=== PATIENT | female | born 1995 | race Caucasian/White ===

== ENCOUNTER → 2017-08-04 16:06 | Outpatient (CLI) | payer MEDICAID, SELFPAY ==
[2017-08-04 19:24] LABS: Chlamydia Trachomatis by PCR Negative (Negative); Neisserai gonorrhoeae by PCR Negative (Negative); Probe Check PASS; Sample Adequacy Control PASS; Specimen Processing Control PASS
[2017-08-09 15:13] LABS: HPV Reflexed? NOT INDICATED
== END ==
PROVIDERS: Visit Provider Obstetrics & Gynecology
DX: Z12.4 Encounter for screening for malignant neoplasm of cervix (principal); Z12.72 Encounter for screening for malignant neoplasm of vagina
CPT/HCPCS: 87491; 87591; 88175; G0145

== ENCOUNTER 2017-11-25 08:17 | Outpatient (CLI) | payer MEDICAID, SELFPAY ==
[2017-11-25 08:18] VITALS: BP 109/74; PULSE 72; RESP 15; TEMP 36.7; O2SAT 100; BMI 26.2
[2017-11-25 08:25] VITALS: O2SAT 100
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
--- NOTE | 2017-11-25 08:56 | ED.RN ---
REPORT CALLED TO [facility] IN [facility], PT TRANSPORTED IN WHEELCHAIR
[2017-11-25 09:28] VITALS: BMI 24.7
[2017-11-25] MEDS: 0.9% Saline Lock 10 ML Syringe IV (09:45)
[2017-11-25 10:07] LABS: Hematocrit 34.4 % (37-47); Hemoglobin 11.4 g/dl (12.0-15.0); Mean Corp Hgb Conc 33.1 g/gl (32-36); Mean Corpuscular Hgb 31.1 pg (27.0-32.0); Mean Platelet Vol. 9.5 fl (6.2-12.0); Platelet Count 258 K/mm3 (150-450); RBC Distribution Width CV 13.2 % (11.6-14.6); RBC Distribution Width SD 45.1 fl (35.1-43.9); Red Blood Count 3.66 M/mm3 (4.2-5.4); White Blood Count 16.9 K/mm3 (4.4-11.0)
[2017-11-25 10:08] LABS: Scan Indicated on CBC? Y/N NO
[2017-11-25 10:56] LABS: Prothrombin Time (Protime)PT. 13.1 SECONDS (11.7-14.9)
[2017-11-25 10:57] LABS: Fibrinogen 306 mg/dl (203-444); Partial Thromboplast Time 26.9 Seconds (24.1-36.2)
[2017-11-25] MEDS: Lactated Ringers 500 ML IV (11:30)
[2017-11-25 12:34] LABS: ROM Internal Control Test YES-OK TO RESULT pt. (Internal QC); ROM Patient Test Negative (Negative)
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
== END 2017-11-25 13:35 | disposition home or self-care (01) ==
LOC: ED 08:49 → WPOUT 09:18 → WP 09:20
PROVIDERS: Emergency Provider Emergency Medicine; Visit Provider Obstetrics & Gynecology
DX: O9A.212 Injury, poisoning and certain other consequences of external causes complicating pregnancy, second trimester (principal); S30.1XXA Contusion of abdominal wall, initial encounter; S70.12XA Contusion of left thigh, initial encounter; Z3A.25 25 weeks gestation of pregnancy; V89.2XXA Person injured in unspecified motor-vehicle accident, traffic, initial encounter; Y93.9 Activity, unspecified; Y92.9 Unspecified place or not applicable; O76 Abnormality in fetal heart rate and rhythm complicating labor and delivery; R10.2 Pelvic and perineal pain
CPT/HCPCS: 96360; 36415; 59050; 84112; 85027; 85384; 85610; 85730; 86900; 99218; 99284; J7120; A4216; G0378

== ENCOUNTER 2018-03-03 16:50 | Inpatient (IN) | payer MEDICAID, SELFPAY ==
[2018-03-03 16:09] VITALS: BMI 30.3
[2018-03-03] MEDS: Lactated Ringers 1,000 ML 50 ML IV ×2 (17:00→18:23)
[2018-03-03 17:20] LABS: Hematocrit 39.9 % (37-47); Hemoglobin 13.1 g/dl (12.0-15.0); Mean Corp Hgb Conc 32.8 g/gl (32-36); Mean Corpuscular Hgb 30.5 pg (27.0-32.0); Mean Platelet Vol. 9.5 fl (6.2-12.0); Platelet Count 341 K/mm3 (150-450); RBC Distribution Width CV 14.1 % (11.6-14.6); Red Blood Count 4.29 M/mm3 (4.2-5.4); Scan Indicated on CBC? Y/N NO; White Blood Count 20.1 K/mm3 (4.4-11.0)
[2018-03-03 17:30] LABS: Group B Strep DNA By PCR Negative (Negative); Internal Control PASS; Probe Check PASS; Specimen Processing Control PASS
[2018-03-03] MEDS: fentaNYL-bupivacaine (epidural) 100 ML BAG EPIDURAL (17:52)
--- NOTE | 2018-03-03 17:59 | PCM.HP.OB ---
- Problem List (1) Active labor at term Status: Acute (2) SROM (spontaneous rupture of membranes) Status: Acute (3) Multiparous Status: Acute History Date of Admission: 03/03/18 Final GILDA: 03/04/18 Final GILDA Source: US <20 weeks Gestational age: 39 Weeks and 6 Days History of this : This is a 22 year-old, G [3], P [2], at 39 weeks gestational age. Presented to L&D with contractions every 2 minutes since around 3pm. Upon arrival SROM for clear fluid. Patient arrived as no doc patient. Currently patient seeing Dr. Connors with My QUANTITATIVE RESEARCH ANALYST, patient declined care at [facility] and that is why presented to [facility]. Records released signed and records received from [facility]. History of Vacuum delivery with first child. 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 Do not have official lab report. Allergies No Known Allergies Allergy (Verified 03/03/18 17:09) Home Medications: Home Medications Vits [Prenatabs FA] 1 tablet PO DAILY 11/25/17 Smoking Status: Current every day smoker Alcohol: None Number of Fetus(es): 1 Heart Tracin, moderate variability, accels, no decels, Category 1 TOCO Analysis: TOCO: Contractions every 2 minutes, moderate to palpation. History Past Pregnancies: Past Pregnancies Delivery Date Name GA/Weeks Outcome Route Weight Infant Gender Labor Length Anesthesia Delivery Location Provider FOB Labs: RPR Negative HIV Negative HBsAG Negative Rubella Immune GBS negative GC/CT negative O positive Anti E antibody. Expected Delivery Method: Spontaneous Vaginal Review of Systems Constitutional: Denies: Chills, Fever, Weight Change HEENT: Denies: Head Aches, Sinus Congestion, Sinus Drainage Cardiovascular: Denies: Chest Pain, Palpitations Respiratory: Denies: Cough, Shortness of breath at rest, Sputum production Gastrointestinal: Denies: Abdominal Pain, Nausea, Vomiting Genitourinary: Denies: Dysuria Neurological: Denies: Numbness, Tingling, Focal weakness Psychiatric: Denies: Anxiety, Depression, Homicidal Ideations, Suicidal Ideations Physical Exam General: Alert, Oriented x3, No apparent distress HEENT: Atraumatic, Normocephalic. Negative for: Thyromegaly, Lymphadenopathy Cardiovascular: Regular rate, Regular Rhythm, No murmurs Lungs: Clear to auscultation, No rhonchi, No wheeze Abdomen: Gravid Extremities:: No edema Neurological: Deep Tendon Reflexes 2+/4 and Symmetrical. Negative for: Clonus VIDEO GAMES MECHANIC: Normal external genitalia Estimated gestational size: Appropriate for gestational size Presentation: Cephalic Cervix Dilation (cm): 5 - Per nursing Assessment/Plan All Active Problems Active labor at term (Acute) SROM (spontaneous rupture of membranes) (Acute) Multiparous (Acute) This is a 22 year-old, G [3], P [2002], at 39 weeks 5 days EGA by end trimester ultrasound A:Active Labor Spontaneous Rupture of Membranes P: 1) Admit to L&D, routine orders. Place IV and labs 2) Epidural for pain management 3) notified of patient status and plan Clarice Watts, DENITA, CN
--- NOTE | 2018-03-03 18:03 | HP.PCM_ITS ---
- Problem List (1) Active labor at term Status: Acute (2) SROM (spontaneous rupture of membranes) Status: Acute (3) Multiparous Status: Acute History Date of Admission: 03/03/18 Final GILDA: 03/04/18 Final GILDA Source: US <20 weeks Gestational age: 39 Weeks and 6 Days History of this : This is a 22 year-old, G [3], P [2], at 39 weeks gestational age. Presented to L&D with contractions every 2 minutes since around 3pm. Upon arrival SROM for clear fluid. Patient arrived as no doc patient. Currently patient seeing Dr. Connors with My CELLULAR PLASTICS CUTTER, patient declined care at [facility] and that is why presented to [facility]. Records released signed and records received from [facility]. History of Vacuum delivery with first child. 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 Do not have official lab report. Allergies No Known Allergies Allergy (Verified 03/03/18 17:09) Home Medications: Home Medications Vits [Prenatabs FA] 1 tablet PO DAILY 11/25/17 Smoking Status: Current every day smoker Alcohol: None Number of Fetus(es): 1 Heart Tracin, moderate variability, accels, no decels, Category 1 TOCO Analysis: TOCO: Contractions every 2 minutes, moderate to palpation. History Past Pregnancies: Past Pregnancies Delivery Date Name GA/Weeks Outcome Route Weight Infant Gender Labor Length Anesthesia Delivery Location Provider FOB Labs: RPR Negative HIV Negative HBsAG Negative Rubella Immune GBS negative GC/CT negative O positive Anti E antibody. Expected Delivery Method: Spontaneous Vaginal Review of Systems Constitutional: Denies: Chills, Fever, Weight Change HEENT: Denies: Head Aches, Sinus Congestion, Sinus Drainage Cardiovascular: Denies: Chest Pain, Palpitations Respiratory: Denies: Cough, Shortness of breath at rest, Sputum production Gastrointestinal: Denies: Abdominal Pain, Nausea, Vomiting Genitourinary: Denies: Dysuria Neurological: Denies: Numbness, Tingling, Focal weakness Psychiatric: Denies: Anxiety, Depression, Homicidal Ideations, Suicidal Ideations Physical Exam General: Alert, Oriented x3, No apparent distress HEENT: Atraumatic, Normocephalic. Negative for: Thyromegaly, Lymphadenopathy Cardiovascular: Regular rate, Regular Rhythm, No murmurs Lungs: Clear to auscultation, No rhonchi, No wheeze Abdomen: Gravid Extremities:: No edema Neurological: Deep Tendon Reflexes 2+/4 and Symmetrical. Negative for: Clonus POWERTRAIN CONTROL SYSTEMS ENGINEER: Normal external genitalia Estimated gestational size: Appropriate for gestational size Presentation: Cephalic Cervix Dilation (cm): 5 - Per nursing Assessment/Plan All Active Problems Active labor at term (Acute) SROM (spontaneous rupture of membranes) (Acute) Multiparous (Acute) This is a 22 year-old, G [3], P [2002], at 39 weeks 5 days EGA by end trimester ultrasound A:Active Labor Spontaneous Rupture of Membranes P: 1) Admit to L&D, routine orders. Place IV and labs 2) Epidural for pain management 3) notified of patient status and plan Clarice Watts, DENITA, CN
[2018-03-03] MEDS: Oxytocin 30 units/NS 500 ml 30 UNITS/500 ML IV.SOLN 334 UNITS IV (19:10)
--- NOTE | 2018-03-03 19:21 | PCM.OB.VAG ---
- Problem List (1) Active labor at term Status: Acute (2) SROM (spontaneous rupture of membranes) Status: Acute (3) Multiparous Status: Acute (4) Vaginal delivery Status: Acute Vaginal Delivery Maternal Presentation: Active Labor, Spontaneous Rupture of Membranes Amniotic Membrane Rupture Type: Spontaneous Amniotic Fluid Description: Clear Final GILDA: 03/04/18 Gestational age: 39 Weeks and 6 Days Date of Procedure: 03/03/18 Pre-Operative Diagnosis: Active Labor Post-Operative Diagnosis: Surgery/ Procedure Performed: Spontaneous Vaginal Delivery Type of Anesthesia: Epidural Description of Procedure: Progressed to complete with urge to push. of viable female infant over intact perineum. APGARS 8,9 . Weight pending. delivered and placed on maternal abdomen. Uncomplicated delivery, spontaneous cry, mouth and nares suctioned for secretions. Pitocin started for active 3rd stage management. Cord clamped and cut by FOB after pulsations ceased. Placenta delivered intact with maternal effort via mazin, 3 vessel cord. Perinuem inspected and intact. Fundus firm, hemostasis achieved, EBL 200ml. Sponge and instrument count correct. initiated. Mom and baby stable, family bonding well. notified. Presentation: Vertex Placental Delivery Description: Spontaneous Placenta Disposition: [facility] Cord Vessel Description: 3 Vessels Cord Entanglement: None Estimated Blood Loss: 200 ml Infant A gender: Female (1 minute): 8 (5 minute): 9 Episiotomy Description: None Laceration: None Medications given after delivery: IV Pitocin Complications: None
[2018-03-03 19:27] VITALS: BP 114/62; PULSE 81; RESP 16; TEMP 36.2; O2SAT 99
[2018-03-03] MEDS: Oxytocin 30 units/NS 500 ml 30 UNITS/500 ML IV.SOLN 167 UNITS IV (19:40)
[2018-03-03 23:30] VITALS: BP 125/63; PULSE 103; RESP 16; TEMP 36.6; O2SAT 97
--- NOTE | 2018-03-04 00:17 | NURSING ---
patient up and to bathroom with RN, steady on feet, denies dizziness, void x400ml, moved to room 5 at this time, denies pain or needs at this time
[2018-03-04 04:00] VITALS: BP 108/66; PULSE 88; RESP 16; TEMP 37.1
--- NOTE | 2018-03-04 08:16 | DCINST_ITS ---
Discharge Diet: No Restrictions Discharge Activity: Return to Normal Activity, May not drive while taking narcotic pain medications., May Shower May resume sexual activity in: 4-6 weeks Additional Activity Instructions:: Nothing in the vagina for 4-6 weeks. You may return to work/school in 6 weeks. Call your doctor if your incision/area has: Continuous Slow Oozing, Sudden Increased Bleeding, Increased Pain/ Swelling, Increased Redness, Foul Smelling Discharge Call your doctor if you observe: Fever of 101 or Higher Additional Instructions: If you experience any of the following, contact your healthcare provider. * Bleeding that soaks a pad every hour for 2 hours * Fever 100.4 or higher * Unrelieved incision or abdominal pain * Swelling, redness, discharge or bleeding from your incision or episiotomy site * Your incision begins to separate * Problems urinating (including inability to urinate or burning while urinating). * Visual changes * Severe headache * Flu-like symptoms * Pain or redness in one of both of your breasts * Pain, warmth, tenderness or swelling in your legs, especially the calf area * Frequent nausea and vomiting * Symptoms of depression or anxiety If you experience any of the following, call 911 or go to the nearest Emergency Room. * Chest pain * Problems breathing * Seizure activity * Partial or complete paralysis of a body part, slurred speech, weakness or drooping of the face, or a sudden inability to walk or hold your balance Allergies/Adverse Reactions: Allergies No Known Allergies Allergy (Verified 03/03/18 17:09) Medications to take at Discharge Vits [Prenatabs FA ] 1 tablet PO DAILY 11/25/17 Ibuprofen 600 mg PO 4X/DAY PRN PRN #30 tablet 03/04/18 Vits [Prenatabs FA ] 1 tablet PO DAILY tablet 03/04/18 The following prescriptions were given: Ibuprofen 600 mg PO 4X/DAY PRN PRN #30 tablet PRN Reason: Pain When: Please call to make an appointment in 1-2 weeks with CNM or [facility] and then for your 6 weeks post visit. Primary Care Physician: Care Physician,No Primary [Primary Care Provider] - Test Results: Test results from this visit will be discussed in further detail at your follow- up appointment, if applicable. Proposed Discharge Date: 03/04/18
--- NOTE | 2018-03-04 08:16 | PCM.PN.OB ---
Patient Problems: Active and Suspected Problems Active labor at term (Acute) SROM (spontaneous rupture of membranes) (Acute) Multiparous (Acute) Vaginal delivery (Acute) Subjective: pt seen at bedside, doing well. pt reports good pain control. lochia mild. voiding without difficulty. breast feeding well. - Physical Exam General: Alert, Oriented x3 Abdomen: Soft, Non Tender, - - fundus firm Extremities: No Calf Tenderness Vital Signs Temp Pulse Resp BP Pulse Ox 98.7 F 88 16 108/66 97 03/04/18 04:00 03/04/18 04:00 03/04/18 04:00 03/04/18 04:00 03/03/18 23:30 Oxygen Delivery Method Room Air Weight: 82.645 kg Body Mass Index (BMI) 30.3 Intake and Output for Last 24 Hours 03/02/18 03/03/18 03/04/18 23:59 23:59 23:59 Output Total 400 / 400 Balance -400 / -400 Laboratory Tests Past 24 Hrs 03/03/18 03/03/18 03/03/18 16:20 17:00 17:00 WBC 20.1 H RBC 4.29 Hgb 13.1 Hct 39.9 MCV 93.0 MCH 30.5 MCHC 32.8 RDW 14.1 RDW Differential 47.0 H Plt Count 341 MPV 9.5 Group B Strep DNA Negative Specimen Comment Not Reportable Blood Type O POSITIVE Antibody Screen POSITIVE H Antibody Identification ANTI-E Crossmatch See Detail Medical Necessity - Tobacco Use Smoking Status: Current every day smoker Assessment/Plan All Active Problems Active labor at term (Acute) SROM (spontaneous rupture of membranes) (Acute) Multiparous (Acute) Vaginal delivery (Acute) PPD#1, doing well routine care pain mgmt d/c home reviewed- if she remains stable and infant is discharged then dc home is fine and requested by patient. pt was encouraged to make appt in office 1-2 weeks from now.
[2018-03-04 08:52] VITALS: BP 112/75; PULSE 60; TEMP 36.8
[2018-03-04 12:30] VITALS: BP 118/72; PULSE 100; RESP 20; TEMP 37.2
[2018-03-04] MEDS: Prenatal Vits Tablet 1 TABLET PO (12:33)
[2018-03-04] MEDS: Ibuprofen 600 MG Tablet PO (17:18)
[2018-03-04 17:20] VITALS: BP 136/80; PULSE 90; RESP 18; TEMP 37.2
[2018-03-04 19:21] VITALS: BP 118/64
== END 2018-03-04 21:15 | disposition home or self-care (01) | DRG 560 ==
LOC: WPOUT 16:53 → WP 19:30
PROVIDERS: Admitting Provider Obstetrics & Gynecology; Referring Provider Obstetrics & Gynecology; Visit Provider Obstetrics & Gynecology
DX: O99.334 Smoking (tobacco) complicating childbirth (principal); F17.200 Nicotine dependence, unspecified, uncomplicated; Z3A.39 39 weeks gestation of pregnancy; Z37.0 Single live birth
CPT/HCPCS: 59025; 59050; 85027; 86850; 86870; 86900; 86902; 86920; 86922; 87081; 87653; 99218; J7120; 90686; G0378

== ENCOUNTER 2018-11-19 00:56 | Emergency (ER) | payer MEDICAID, SELFPAY ==
[2018-11-19 00:58] VITALS: BP 132/99; PULSE 89; RESP 18; TEMP 37.1; O2SAT 98; BMI 27.6
--- NOTE | 2018-11-19 01:32 | ED.DCSUM_ITS ---
- ER Visit Summary Date of Service: 11/19/18 Chief Complaint: Jaw pain and neck pain resolved. History of Present Illness: The patient is a 23 F history of anxiety. States that around 11:00 tonight she had bilateral jaw pain. Then developed pain down the left side of her neck. This is since resolved. Currently she is not having any symptoms. She did state that time she got anxious and felt her whole body tingling. She denied any weakness in her arms or legs. No visual change. No headache. No prior history. Physical Examination: Well-appearing young female no acute distress. Vital signs are stable afebrile. Pulse ox 90% on room air no signs of hypoxia. HEENT exam normal. Pupils round reactive light. No facial swelling. Dentition is in good shape. She is able to open and close her mouth on a difficulty. No TMJ tenderness or facial swelling. Neck nontender no lymphadenopathy. Normal range of motion. Lungs clear to auscultation bilaterally. Equal symmetrical. Heart regular rate and rhythm rate about 80 no murmur. Chest wall nontender. No crepitance or subcu air. Abdomen soft and nontender normal bowel sounds no peritoneal signs. Patient is moving all 4 extremities. There are neurovascular intact. Equal symmetrical 5 out of 5 media marketing specialist strength. Dorsi plantar flexion intact. She can raise either leg without any difficulty. [id number] within normal limits. Fingertip to nose within normal limits. Back exam nontender. Skin exam normal. Neurologically she is awake alert with no focal motor or sensory deficits. NIH score of 0. Test Results: None Emergency Department Course and Treatment: Clinically the patient has normal exam. This may have been anxiety or panic attack. It seemed to have resolved. She has no findings currently on exam. And is resting comfortably. Treatment Plan: Continue her anxiety meds. Return if worse. Disposition: Discharge Impression: Acute atypical jaw neck pain of uncertain etiology Acute anxiety This note was generated with [employer] dictation software. It may contain incorrect words, spelling, and punctuation that were not noted in review of the chart prior to signing ED Disposition - Plan for ED Patient: Referrals: Care Physician,No Primary [Primary Care Provider] -
--- NOTE | 2018-11-19 01:36 | ED.DEP ---
ED Disposition - Plan for ED Patient: Disposition: Home or Assisted Living Instructions: Panic Attack Referrals: Tavo Montelongo MD [STAFF PHYSICIAN] - As Needed Additional Instructions: Your exam is completely normal. I cannot specifically explain the pain I do not think it is anything serious.
[2018-11-19 01:43] VITALS: RESP 16
== END 2018-11-19 01:44 | disposition home or self-care (01) ==
PROVIDERS: Emergency Provider Emergency Medicine
DX: F41.9 Anxiety disorder, unspecified (principal); R68.84 Jaw pain; M54.2 Cervicalgia; Z79.899 Other long term (current) drug therapy; Z72.0 Tobacco use
CPT/HCPCS: 99284; A4216